=== PATIENT | male | born 2000 | race Hispanic/Latino ===

== ENCOUNTER 2024-06-10 06:24 | Emergency (ER) | payer OTHER, SELFPAY ==
[2024-06-10] MEDS ORDERED: ONDANSETRON 4 MG/2 ML VIAL ONE (06:44)
[2024-06-10] MEDS ORDERED: NA CHLORIDE 0.9% 1,000 ML ONE (06:47)
[2024-06-10] MEDS ORDERED: KETOROLAC 30 MG/ML INJ ONE (06:47)
[2024-06-10] MEDS ORDERED: MORPHINE 4 MG/ML SYR ONE ×2 (06:47→08:51)
[2024-06-10 07:21] LABS: Absolute Eosinophils 0.1 K/uL (0-0.5); Absolute Lymphocytes (CBC) 2.3 K/uL (0.7-4.9); Absolute Monocytes 0.7 K/uL (0.1-1.3); Absolute Neutrophil 6.8 K/uL (1.8-8.0); Basophils % 0.1 % (0-1.3); Eosinophils % 0.7 % (0-4.4); Hematocrit 40.7 % (39.6-49.0); Hemoglobin 13.3 g/dL (13.6-17.9); Lymphocytes % 23.1 % (15.3-44.8); MCH 27.7 pg (27.0-35.0); MCHC 32.8 g/dL (32.0-36.0); MCV 84.6 fL (80-100); Neutrophils % 69.1 % (41.7-73.7); Platelets 246 thou/uL (152-406); RBC Red Blood Cell Count 4.81 M/uL (4.33-5.43); Red Cell Distribution Width 14.7 % (12.1-15.2)
[2024-06-10 07:36] LABS: Albumin 3.2 g/dL (3.4-5.0); Albumin/Globulin Ratio 0.8 (1.1-1.8); Anion Gap 7.9 mEq/L (5.0-15.0); Bilirubin Total 0.4 mg/dL (0.2-1.0); Globulin 3.8 g/dL (2.3-3.5); Potassium 3.9 mEq/L (3.5-5.1)
--- NOTE | 2024-06-10 07:38 | RAD REPORT ---
EXAMINATION: CT ABDOMEN AND PELVIS WITHOUT CONTRAST CLINICAL INDICATION: Abdominal pain/flank pain TECHNIQUE: CT abdomen and pelvis was performed, as per department protocol. IV contrast and oral was not administered.Axial, sagittal and coronal reconstructions were obtained. One or more of the following dose reduction techniques were used: Automated exposure control, adjustment of the mA and/o r kV according to the patient size, and/or iterative reconstruction. Unless otherwise specified, incidental findings do not require dedicated imaging follow-up. [id number]. COMPARISON: No prior exam. FINDINGS: The lack of intravenous and oral contrast limits evaluation of solid organs, vessels and bowel. Moderate right hydronephrosis. A right renal calculus not seen. 8 mm calculus within the proximal rig ht ureter. Several left renal calculi. No left hydronephrosis. A ureteral left calculus not seen. No bladder jef culus. Fatty liver. The spleen, pancreas and adrenals grossly normal. No evidence of diverticulitis IMPRESSION: 8 mm calculus proximal to mid right ureter results in moderate right hydronephrosis
[2024-06-10] MEDS ORDERED: TAMSULOSIN 0.4 MG SR CAP ONE (07:57)
[2024-06-10] MEDS ORDERED: MAGNESIUM SULFATE 1 gm IVPB 1 GM/100 ML BAG IV ONE (07:58)
[2024-06-10 08:29] LABS: Specific Gravity 1.025 (1.005-1.030); Sqamous Epithelial None Seen /HPF (None Seen); Urine Bacteria None Seen /HPF (<20); Urine Bilirubin NEGATIVE (Negative); Urine Blood 2+ (Negative); Urine Clarity Clear (Clear); Urine Color Light-Yellow (Yellow); Urine Culture Reflex Order NOT NEEDED; Urine Glucose NEGATIVE (Negative); Urine Ketones NEGATIVE (Negative); Urine Microscopic Reflex YN ORDER UMIC; Urine Nitrite NEGATIVE (Negative); Urine Protein NEGATIVE (Negative); Urine RBC 21-50 /HPF (None Seen); Urine Urobilinogen Normal (Normal); Urine WBC <5 /HPF (<5)
--- NOTE | 2024-06-10 09:18 | ER ---
Nurse's Notes [facility] Name: Wali Bailon Age: 24 yrs Sex: Male : 2000 Arrival Date: 06/10/2024 Time: 06:24 Bed 5 Private MD: Diagnosis: Calculus of ureter Presentation: 06/10 06:39 Chief complaint: Patient states: right lower back pain that started 6-8 hours ago. vc1 Trouble peeing having a bowel movement and blood in urine. Coronavirus screen: Client denies travel out of the [place] in the last 14 days. At this time, the client does not indicate any symptoms associated with coronavirus-19. Ebola Screen: Patient negative for fever greater than or equal to 101.5 degrees Fahrenheit, and additional compatible Ebola Virus Disease symptoms Patient denies exposure to infectious person. Patient denies travel to an Ebola-affected area in the 21 days before illness onset. No symptoms or risks identified at this time. Initial Sepsis Screen: Does the patient meet any 2 criteria? No. Patient's initial sepsis screen is negative. Does the patient have a suspected source of infection? No. Patient's initial sepsis screen is negative. Risk Assessment: Do you want to hurt yourself or someone else? Patient reports no desire to harm self or others. Onset of symptoms was June 10, 2024. 06:39 Method Of Arrival: Ambulatory vc1 06:39 Acuity: NATHALIA 3 vc1 Triage Assessment: 06:44 General: Appears in no apparent distress. uncomfortable, obese, Behavior is calm, vc1 cooperative, appropriate for age. Pain: Complains of pain in right low back Pain does not radiate. Pain currently is 8 out of 10 on a pain scale. Quality of pain is described as sharp, Pain began suddenly. EENT: No deficits noted. No signs and/or symptoms were reported regarding the EENT system. Neuro: Level of Consciousness is awake, alert, obeys commands, Oriented to person, place, time, situation, Appropriate for age. : Reports pain in right in lower back blood in urine. Historical: - Allergies: 06:42 No Known Allergies; vc1 - Home Meds: 06:42 None [Active]; vc1 - PMHx: 06:42 Kidney stone; vc1 - PSHx: 06:42 None; vc1 - Immunization history:: Client reports having NOT received the Covid vaccine. - Infectious Disease History:: Denies. - Social history:: Smoking status: Patient denies any tobacco usage or history of. Screenin:21 [facility] ED Fall Risk Assessment (Adult) History of falling in the last 3 months, kc6 including since admission No falls in past 3 months (0 pts) Confusion or Disorientation No (0 pts) Intoxicated or Sedated No (0 pts) Impaired Gait No (0 pts) Mobility Assist Device Used No (0 pt) Altered Elimination No (0 pt) Score/Fall Risk Level 0 - 2 = Low Risk Oriented to surroundings. Abuse screen: Denies threats or abuse. Denies injuries from another. Nutritional screening: No deficits noted. Tuberculosis screening: No symptoms or risk factors identified. Assessment: 07:21 General: Appears in no apparent distress. comfortable, obese, well groomed, well kc6 developed, Behavior is calm, cooperative, appropriate for age. Pain: Complains of pain in right low back. Neuro: Level of Consciousness is awake, alert, obeys commands, Oriented to person, place, time, situation, Appropriate for age. Cardiovascular: Capillary refill < 3 seconds. Respiratory: Airway is patent Trachea midline Respiratory effort is even, unlabored, Respiratory pattern is regular, symmetrical. GI: No signs and/or symptoms were reported involving the gastrointestinal system. : Reports trouble with urination. EENT: No signs and/or symptoms were reported regarding the EENT system. Derm: No signs and/or symptoms reported regarding the dermatologic system. Skin is intact, is healthy with good turgor, Skin is pink, warm \T\ dry. Musculoskeletal: No signs and/or symptoms reported regarding the musculoskeletal system. Circulation, motion, and sensation intact. Capillary refill < 3 seconds, Range of motion: intact in all extremities. 08:56 Reassessment: Patient appears in no apparent distress at this time. No changes from kc6 previously documented assessment. Patient and/or family updated on plan of care and expected duration. Pain level reassessed. Patient is alert, oriented x 3, equal unlabored respirations, skin warm/dry/pink. 09:23 Reassessment: Patient appears in no apparent distress at this time. No changes from kc6 previously documented assessment. Patient and/or family updated on plan of care and expected duration. Pain level reassessed. Patient is alert, oriented x 3, equal unlabored respirations, skin warm/dry/pink. Patient states feeling better. Patient states symptoms have improved. Vital Signs: 06:39 BP 166 / 97; Pulse 66; Resp 15; Temp 99.1; Pulse Ox 98% ; Weight 149.69 kg; Height 5 vc1 ft. 8 in. ; Pain 8/10; 08:04 BP 157 / 85; Pulse 71; Resp 16 S; Pulse Ox 99% on R/A; kc6 08:56 BP 155 / 90; Pulse 65; Resp 16 S; Pulse Ox 99% ; Pain 5/10; kc6 09:19 BP 149 / 91; Pulse 67; Resp 15; Pulse Ox 98% on R/A; ko1 06:39 Body Mass Index 50.18 (149.69 kg, 172.72 cm) vc1 06:39 Pain Scale: Adult vc1 08:56 Pain Scale: Adult kc6 ED Course: 06:30 Patient arrived in ED. gm2 06:32 Ramon Pedro MD is Attending Physician. ec2 06:42 Triage completed. vc1 06:44 Arm band placed on left wrist. vc1 07:15 No provider procedures requiring assistance completed. Initial lab(s) drawn, by abdirashid arnold sent to lab. Inserted saline lock: 22 gauge in left antecubital area, using aseptic technique. Blood collected. Flushed with 10 mL NS. 07:17 Attending Physician role handed off by Ramon Pedro MD ec2 07:17 Alvin Villela MD is Attending Physician. ec2 07:17 Alma Perez RN is Primary Nurse. kc6 07:20 Patient has correct armband on for positive identification. Bed in low position. Call kc6 light in reach. Side rails up X 1. Pulse ox on. NIBP on. Door closed. Noise minimized. Lights dimmed. Pillow given. 07:21 Report received from SUKHDEV Ames. kc6 07:21 Patient maintains SpO2 saturation greater than 95% on room air. kc6 07:22 CT Abd/Pelvis - Without Contrast In Process Unspecified. EDMS 08:04 Urinalysis w/ reflexes Sent. kc6 09:19 Provided Education on: labs. ko1 09:19 IV discontinued, intact, bleeding controlled, No redness/swelling at site. Pressure ko1 dressing applied. Administered Medications: 07:16 Drug: TORadol - Ketorolac IVP 15 mg IVP once Route: IVP; Site: left antecubital; bm8 08:04 Follow up: Response: No adverse reaction; Pain is decreased kc6 07:16 Drug: Ondansetron IVP 4 mg IVP once; over 2 minutes Route: IVP; Site: left antecubital; bm8 08:04 Follow up: Response: No adverse reaction kc6 07:16 Drug: morphine IVP or IV 4 mg IVP once over 4 mins Route: IVP; Infused Over: 4 mins; bm8 Site: left antecubital; 08:04 Follow up: Response: No adverse reaction; Pain is decreased; RASS: Alert and Calm (0) kc6 07:16 Drug: NS 0.9% IV 1000 ml IV at 1 bolus Per protocol; to be given as a bolus over 60 bm8 minutes Route: IV; Rate: 1 bolus; Site: left antecubital; 08:56 Follow up: Response: No adverse reaction; IV Status: Completed infusion; IV Intake: kc6 1000ml 08:04 Drug: Magnesium Sulfate IVPB 1 grams IVPB once over 1 hrs Route: IVPB; Infused Over: 1 kc6 hrs; Site: left antecubital; 09:08 Follow up: Response: No adverse reaction; IV Status: Completed infusion; IV Intake: kc6 100ml 08:04 Drug: Flomax PO 0.4 mg PO once Route: PO; kc6 08:33 Follow up: Response: No adverse reaction kc6 08:56 Drug: morphine IVP or IV 4 mg IVP once over 4 mins Route: IVP; Infused Over: 4 mins; kc6 Site: left antecubital; 09:11 Follow up: Response: No adverse reaction; Pain is decreased ko1 Medication: 09:19 VIS not applicable for this client. ko1 Intake: 08:56 IV: 1000ml; Total: 1000ml. kc6 09:08 IV: 100ml; Total: 1100ml. kc6 Outcome: 09:17 Discharge ordered by . sukhdev 09:27 Patient left the ED. ko1 Signatures: Dispatcher [employer] EDMS Alvin Villela MD MD rn Calcote, Vanessa, RN RN vc1 Alma Perez RN RN kc6 Cyndy Hopson RN RN ko1 Ramon Pedro MD MD ec2 Debby Pelayo 2 Kwaku Malloy RN RN bm8 Corrections: (The following items were deleted from the chart) 06:44 06:42 PMHx: None; vc1 vc1
--- NOTE | 2024-06-10 09:18 | EDPHYS ---
Physician Documentation [facility] Name: Wali Bailon Age: 24 yrs Sex: Male : 2000 Arrival Date: 06/10/2024 Time: 06:24 Bed 5 Private MD: ED Physician Alvin Villela HPI: 06/10 06:40 This 24 yrs old Male presents to ER via Unassigned with complaints of Urinary ec2 Problem, BLOOD IN URINE, Low Back Pain. 06:40 Patient arrives today for evaluation of right flank pain. Patient with history of ec2 ureteral stones. States has been having some flank pain going into the groin. Patient reports some blood in the urine as well. Some nausea, vomiting. Patient reports feeling of urinary urgency.. Historical: - Allergies: 06:42 No Known Allergies; vc1 - Home Meds: 06:42 None [Active]; vc1 - PMHx: 06:42 Kidney stone; vc1 - PSHx: 06:42 None; vc1 - Immunization history:: Client reports having NOT received the Covid vaccine. - Infectious Disease History:: Denies. - Social history:: Smoking status: Patient denies any tobacco usage or history of. ROS: 06:41 Constitutional: as per hpi ec2 Exam: 06:41 Constitutional: GEN: NAD Head: atraumatic Eyes: EOMI Ears: External ears are ec2 normal. CV: regular rate LUNGS: no respiratory distress ABD: non-distended, obese body habitus, soft abdomen, not guarding, not rigid, minimal right-sided abdominal TTP, negative flanks bilaterally SKIN: no evidence of rashes MSK: no evidence of trauma Vital Signs: 06:39 BP 166 / 97; Pulse 66; Resp 15; Temp 99.1; Pulse Ox 98% ; Weight 149.69 kg; Height 5 vc1 ft. 8 in. ; Pain 8/10; 08:04 BP 157 / 85; Pulse 71; Resp 16 S; Pulse Ox 99% on R/A; kc6 08:56 BP 155 / 90; Pulse 65; Resp 16 S; Pulse Ox 99% ; Pain 5/10; kc6 09:19 BP 149 / 91; Pulse 67; Resp 15; Pulse Ox 98% on R/A; ko1 06:39 Body Mass Index 50.18 (149.69 kg, 172.72 cm) vc1 06:39 Pain Scale: Adult vc1 08:56 Pain Scale: Adult kc6 MDM: 06:32 Medical Screening Exam initiated ec2 06:41 Data reviewed: vital signs. ED course: Patient arrives today for right-sided abdominal ec2 pain and flank pain. Examination remarkable for abdominal findings as noted above. Will obtain lab work, treat the patient's pain with morphine, give the patient crystalloid as well as Toradol and antiemetic. Differential diagnosis include processes such as ureteral stone, urinary tract infection, pyelonephritis. 07:15 Transition of care: After a detail discussion of the patient's case, care is ec2 transferred to Alvin Villela MD. ED course: Patient signed out to oncoming physician with pending workup.. 09:17 Differential diagnosis: UTI, Kidney stone. Counseling: I had a detailed discussion with rn the patient and/or guardian regarding the historical points, exam findings, and any diagnostic results supporting the discharge/admit diagnosis, lab results, radiology results, the need for outpatient follow up, to return to the emergency department if symptoms worsen or persist or if there are any questions or concerns that arise at home. Special discussion: I discussed with the patient/guardian in detail that at this point there is no indication for admission to the hospital. It is understood, however, that if the symptoms persist or worsen the patient needs to return immediately for re-evaluation. ED course: Patient with pain nearly resolved. 8 mm stone. Patient states has never required intervention and has passed up to an 11 mm stone in the past. Is not from around here, has urologist near [place]. Will discharge home with medication and return precautions. Will follow-up with his urologist.. 06/10 06:40 Order name: CBC with Diff; Complete Time: 07:45 ec2 06/10 06:40 Order name: CMP; Complete Time: 07:45 ec2 06/10 06:40 Order name: Lipase; Complete Time: 07:45 ec2 06/10 06:40 Order name: Urinalysis w/ reflexes; Complete Time: 08:47 ec2 06/10 06:40 Order name: CT Abd/Pelvis - Without Contrast; Complete Time: 07:45 ec2 06/10 06:40 Order name: IV Saline Lock; Complete Time: 07:16 ec2 06/10 06:40 Order name: Labs collected and sent; Complete Time: 07:16 ec2 Administered Medications: 07:16 Drug: TORadol - Ketorolac IVP 15 mg IVP once Route: IVP; Site: left antecubital; bm8 08:04 Follow up: Response: No adverse reaction; Pain is decreased kc6 07:16 Drug: Ondansetron IVP 4 mg IVP once; over 2 minutes Route: IVP; Site: left antecubital; bm8 08:04 Follow up: Response: No adverse reaction kc6 07:16 Drug: morphine IVP or IV 4 mg IVP once over 4 mins Route: IVP; Infused Over: 4 mins; bm8 Site: left antecubital; 08:04 Follow up: Response: No adverse reaction; Pain is decreased; RASS: Alert and Calm (0) 6 07:16 Drug: NS 0.9% IV 1000 ml IV at 1 bolus Per protocol; to be given as a bolus over 60 bm8 minutes Route: IV; Rate: 1 bolus; Site: left antecubital; 08:56 Follow up: Response: No adverse reaction; IV Status: Completed infusion; IV Intake: kc6 1000ml 08:04 Drug: Magnesium Sulfate IVPB 1 grams IVPB once over 1 hrs Route: IVPB; Infused Over: 1 kc6 hrs; Site: left antecubital; 09:08 Follow up: Response: No adverse reaction; IV Status: Completed infusion; IV Intake: kc6 100ml 08:04 Drug: Flomax PO 0.4 mg PO once Route: PO; kc6 08:33 Follow up: Response: [facility] 08:[facility] Drug: morphine IVP or IV 4 mg IVP once over 4 mins Route: IVP; Infused Over: 4 mins; kc6 Site: left antecubital; 09:11 Follow up: Response: No adverse reaction; Pain is decreased ko1 Disposition Summary: 06/10/24 09:17 Discharge Ordered Notes: Location: Home rn Problem: new rn Symptoms: have improved rn Condition: Stable rn Diagnosis - Calculus of ureter rn Followup: rn - With: Private Physician - When: As needed - Reason: Recheck today's complaints, Re-evaluation by your physician Discharge Instructions: - Discharge Summary Sheet rn - Kidney Stones rn - Renal Colic rn - Dietary Guidelines to Help Prevent Kidney Stones rn Forms: - Medication Reconciliation Form rn - Antibiotic varnishing unit tool setter - Prescription Opioid Use rn - Patient Portal Instructions rn - Leadership Thank You Letter rn - Work release form ko1 Prescriptions: - Flomax 0.4 mg Oral capsule - take 1 capsule ORAL route every 24 hours Stop taking once you feel that you rn have passed kidney stone; 7 capsule; Refills: 0, Product Selection Permitted - ondansetron 4 mg Oral Tablet,disintegrating - take 1 tablet ORAL route every 8 hours As needed; 10 tablet; Refills: 0, rn Product Selection Permitted - Cipro 500 mg Oral Tablet - take 1 tablet ORAL route every 12 hours for 7 days; 14 tablet; Refills: 0, rn Product Selection Permitted - Tramadol 50 mg Oral Tablet - take 1 tablet ORAL route every 8 hours as needed; 12 tablet; Refills: 0, rn Product Selection Permitted Signatures: Dispatcher [employer] Alvin Hook MD MD rn Calcote, Vanessa RN RN vc1 Alma Perez RN RN kc6 Ramon Pedro MD MD ec2 Kwaku Malloy RN RN bm8 Cyndy Hopson RN ko1 Corrections: (The following items were deleted from the chart) 06:44 06:42 PMHx: None; vc1 vc1
[2024-06-10 10:13] VITALS: TEMP 99.1
[2024-06-10 10:21] VITALS: BP 149/91; O2SAT 98
== END 2024-06-10 09:27 | disposition home or self-care (01) ==
LOC: ER 06:24
DX: N20.1 Calculus of ureter (principal); Z87.442 Personal history of urinary calculi
CPT/HCPCS: 85025; 81001; 36415; 83690; 80053; 74176; J3475; J2405; 96361; 96365; 96375; 99284; J7030